=== PATIENT | male | born 1960 | race Caucasian/White ===

== ENCOUNTER 2022-11-09 09:39 | Day surgery (SDC) | payer OTHER ==
[2022-11-06 10:47] VITALS: BMI 26.1
[2022-11-09] MEDS ORDERED: Lidocaine 4% PF 5 ML AMP ONE (12:01)
[2022-11-09] MEDS ORDERED: PROPOFOL 40 ML ONE (12:01)
== END 2022-11-09 13:05 | disposition home or self-care (01) ==
LOC: CSHSDC 09:39
PROVIDERS: ATTEND Internal Medicine Gastroenterology
DX: K74.60 Unspecified cirrhosis of liver (principal); I85.11 Secondary esophageal varices with bleeding; K76.6 Portal hypertension; K31.89 Other diseases of stomach and duodenum; K29.70 Gastritis, unspecified, without bleeding; C22.8 Malignant neoplasm of liver, primary, unspecified as to type; I10 Essential (primary) hypertension; F17.210 Nicotine dependence, cigarettes, uncomplicated; Z98.890 Other specified postprocedural states; Z86.19 Personal history of other infectious and parasitic diseases; Z88.0 Allergy status to penicillin; Z88.5 Allergy status to narcotic agent
CPT/HCPCS: J2704